=== PATIENT | male | born 1980 | race Two or more races ===

== ENCOUNTER 2024-05-25 08:08 | Emergency (ER) | payer BC, OTHER ==
[~2024-05-25] VITALS: Ht 172.7 cm; Wt 85.4 kg
[2024-05-25 08:36] VITALS: BP 126/84; PULSE 82; RESP 18; TEMP 97.9; O2SAT 98
[2024-05-25] MEDS: KETOROLAC TROMETH 30 MG/ML 1ML VIAL IM ONE (09:09)
[2024-05-25] MEDS: methylPREDNISolone SOD SUCC 125 MG/2 ML VL IM ONE (09:09)
[2024-05-25] MEDS ORDERED: NAP500T PO (09:14)
[2024-05-25] MEDS ORDERED: CYCL-837 PO (09:14)
== END 2024-05-25 09:20 | disposition home or self-care (01) ==
LOC: ER 08:08
DX: S33.5XXA Sprain of ligaments of lumbar spine, initial encounter (principal); X50.3XXA Overexertion from repetitive movements, initial encounter; Y93.89 Activity, other specified; Y92.89 Other specified places as the place of occurrence of the external cause; Y99.8 Other external cause status
CPT/HCPCS: 96372; 99284; J1885; J2919